=== PATIENT | female | born 1960 | race Caucasian/White ===

== ENCOUNTER 2019-01-07 11:05 | Emergency (ER) | payer OTHER ==
[~2019-01-07] VITALS: Ht 157.5 cm; Wt 64.0 kg
[2019-01-07 11:12] VITALS: BP 132/88; PULSE 92; RESP 18; Ht 157.5 cm; Wt 64.0 kg
[2019-01-07] MEDS ORDERED: ACETAMINOPHEN 500 MG TAB PO STA (12:10)
[2019-01-07] MEDS ORDERED: CYCLOBENZAPRINE 10 MG TAB PO ONE (12:30)
[2019-01-07] MEDS ORDERED: CYCL10TA7 PO (13:37)
[2019-01-07] MEDS ORDERED: ACET500C5 PO (13:37)
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
== END 2019-01-07 14:15 | disposition home or self-care (01) ==
LOC: FTE 11:05
DX: S06.0X1A Concussion with loss of consciousness of 30 minutes or less, initial encounter (principal); M62.838 Other muscle spasm; R07.9 Chest pain, unspecified; V49.59XA Passenger injured in collision with other motor vehicles in traffic accident, initial encounter
CPT/HCPCS: 70450; 71045; Z7502; Z7610

== ENCOUNTER 2019-04-18 17:22 | Emergency (ER) | payer OTHER ==
[~2019-04-18] VITALS: Ht 157.5 cm; Wt 59.3 kg
[~2019-04-18 17:22] MED LIST: ACET500C5 PO; ALBU18HF INHALATION; BENZ200C68 PO; CYCL10TA7 PO; PRED20TA PO
[2019-04-18 17:35] VITALS: Ht 157.5 cm; Wt 59.3 kg
[2019-04-18] MEDS ORDERED: ALBUTEROL 0.5% (NEB) 2.5 MG/0.5 ML AMP INH STA (17:58)
[2019-04-18] MEDS ORDERED: predniSONE 20 MG TAB PO STA (17:58)
[2019-04-18] MEDS ORDERED: ACETAMINOPHEN 325 MG TAB PO ONE (18:00)
[2019-04-18 19:53] VITALS: BP 120/69; PULSE 104; RESP 17
== END 2019-04-18 19:53 | disposition home or self-care (01) ==
LOC: FTE 17:22
DX: J20.9 Acute bronchitis, unspecified (principal)
CPT/HCPCS: 71045; 94644; J7512; Z7502; Z7610